=== PATIENT | female | born 1945 | race Caucasian/White ===

== ENCOUNTER 2016-08-30 16:42 | Emergency (ER) | payer MEDICARE, OTHER ==
--- NOTE | 2016-08-30 17:46 | RAD ---
EXAM: Chest,2 Views CLINICAL INDICATION: 71-year-old female with cough and fever. COMPARISON: 07/13/2012. FINDINGS: Two-view, PA and lateral projections of the chest were obtained. Unremarkable cardiac and mediastinal silhouette. Heart size is normal. Atherosclerotic thoracic aorta.Lungs are clear without focal opacity, pneumothorax or pleural effusions. The visualized bones are within normal limits. IMPRESSION: No acute cardiopulmonary abnormalities. Electronically signed by: Flori Christianson MD 08/30/2016 5:45 PM NATURAL SCIENCES PROFESSOR
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
[2016-08-30] MEDS ORDERED: cefTRIAXone SODIUM 1 GM VIAL IM ONE (18:29)
[2016-08-30] MEDS ORDERED: methylPREDNISolone ACETATE 80 MG/ML VIAL IM ONE (18:29)
[2016-08-30] MEDS ORDERED: BENZONATATE PERLES 100 MG CAP PO ONE (18:30)
[2016-08-30] MEDS ORDERED: LIDOCAINE 1% 10 ML VIAL INJ ONE (18:45)
[2016-08-30] MEDS ORDERED: ACETAMINOPHEN 500 MG TAB PO ONE (19:12)
[2016-08-30 19:23] VITALS: BP 151/81; TEMP 100.9; O2SAT 93
--- NOTE | 2016-09-27 23:48 | RAD ---
EXAM: Chest,2 Views CLINICAL INDICATION: 71-year-old female with cough and fever. COMPARISON: 07/13/2012. FINDINGS: Two-view, PA and lateral projections of the chest were obtained. Unremarkable cardiac and mediastinal silhouette. Heart size is normal. Atherosclerotic thoracic aorta.Lungs are clear without focal opacity, pneumothorax or pleural effusions. The visualized bones are within normal limits. IMPRESSION: No acute cardiopulmonary abnormalities. Electronically signed by: Flori Christianson MD 08/30/2016 5:45 PM FINAL INSPECTOR AND TESTER
== END 2016-08-30 19:22 | disposition home or self-care (01) ==
LOC: ER 16:42
DX: J40 Bronchitis, not specified as acute or chronic (principal); R09.02 Hypoxemia; R50.81 Fever presenting with conditions classified elsewhere; I10 Essential (primary) hypertension; E11.9 Type 2 diabetes mellitus without complications; Z79.899 Other long term (current) drug therapy; Z87.891 Personal history of nicotine dependence
CPT/HCPCS: 71020; 87502; J0696; J1030

== ENCOUNTER → 2017-07-05 | Outpatient (CLI) | payer MEDICARE, OTHER | END | disposition home or self-care (01) | LOC: GMAJ 10:55 | PROVIDERS: ATTEND Family Medicine | DX: I10 Essential (primary) hypertension (principal) ==

== ENCOUNTER → 2018-04-06 | Outpatient (CLI) | payer MEDICARE, OTHER ==
--- NOTE | 2018-04-11 15:51 | MAM ---
EXAM DESCRIPTION: 3D Screening BILATERAL : Digital Mammography. CLINICAL HISTORY: 72 years Female SCREENING . No complaints. No personal history or family history of breast cancer. Hysterectomy. Childbirth. No HRT. Lifetime risk of developing breast cancer (Tyrer-Cuzick model) is 3.9 %. COMPARISON: 2-D digital screening bilateral study 05/02/2014. No prior reports available. TECHNIQUE: Bilateral CC and MLO projection full-field images, Digital tomosynthesis mammographic technique. Bilateral digital 2-D full-field MLO images. CAD not utilized. FINDINGS: The breast parenchymal density pattern is: Scattered areas of fibroglandular density. No skin thickening or nipple retraction. Bilateral vascular calcifications. Large solitary calcification in the retroareolar right breast. Bilateral solitary microcalcifications. No new focal, stellate mass or density, focal asymmetry , and no suspicious microcalcifications bilaterally. Stable mammograms compared to prior study. Taking into account, differences in mammographic technique. IMPRESSION: Benign exam. BIRAD CATEGORY: 2 BENIGN FINDINGS. RECOMMENDATIONS: FOLLOW UP: Routine digital bilateral screening, one year interval from April 2018. Written communication explaining the IMPRESSION and follow-up, will be mailed to the patient and referring health care provider. According to the [employer], yearly mammograms are recommended starting at age 40 and continuing as long as a woman is in good health. Any breast change noted on a breast self-exam should be reported promptly to the patient's healthcare provider. Breast MRI is recommended for women with an approximately 20-25% or greater lifetime risk of breast cancer, including women with a strong family history of breast or ovarian cancer and women who have been treated for Hodgkin's disease. A negative mammographic report should not delay tissue diagnosis in patients with significant clinical history or physical findings. Extremely dense breast tissue limits the sensitivity of digital mammography. Electronically signed by: Dhruv Womack MD 04/11/2018 3:50 PM CDT
== END ==
LOC: MAMMO 14:52
PROVIDERS: ATTEND Family Medicine
DX: Z12.31 Encounter for screening mammogram for malignant neoplasm of breast (principal)

== ENCOUNTER 2018-06-26 18:25 | Emergency (ER) | payer MEDICARE, OTHER ==
[2018-06-26 19:21] VITALS: TEMP 98.5
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
[2018-06-26 21:17] VITALS: BP 170/78; O2SAT 100
== END 2018-06-26 21:10 | disposition home or self-care (01) ==
LOC: ER 18:25
DX: E11.65 Type 2 diabetes mellitus with hyperglycemia (principal); I10 Essential (primary) hypertension; Z79.84 Long term (current) use of oral hypoglycemic drugs; Z79.899 Other long term (current) drug therapy; Z87.891 Personal history of nicotine dependence

== ENCOUNTER → 2018-06-30 | Outpatient (CLI) | payer MEDICARE, OTHER ==
--- NOTE | 2018-06-30 13:31 | RAD ---
EXAM DESCRIPTION: Pelvis CLINICAL HISTORY: PAIN IN RIGHT HIP COMPARISON: None. TECHNIQUE: AP pelvis FINDINGS: Loss of joint space is observed in the right hip. Mild acetabular osteophyte formation is observed in the right. Phlebolith type calcifications are seen in the pelvis. No fracturing is detected. Calcific atherosclerotic changes observed in the femoral vessels. Degenerative changes are observed in the lower lumbar spine. IMPRESSION: Degenerative changes are observed in the right hip. No fracturing is detected. Electronically signed by: Bryson Landeros MD 06/30/2018 1:29 PM [facility]
--- NOTE | 2018-06-30 13:31 | RAD ---
EXAM DESCRIPTION: Hip,Right 2 Views CLINICAL HISTORY: PAIN IN RIGHT HIP COMPARISON: None. TECHNIQUE: 2 views right FINDINGS: Loss of joint space is observed. Some sclerosis of the acetabulum is noted. Mild acetabular osteophyte formation is observed. No fracturing is detected. No pelvic fracturing is seen. IMPRESSION: Degenerative changes are observed in the right hip. Electronically signed by: Bryson Landeros MD 06/30/2018 1:30 PM [facility]
== END ==
LOC: RAD 08:24
PROVIDERS: ATTEND Orthopaedic Surgery
DX: M25.551 Pain in right hip (principal); M12.851 Other specific arthropathies, not elsewhere classified, right hip

== ENCOUNTER 2018-07-06 06:14 | Day surgery (SDC) | payer MEDICARE, OTHER ==
[~2018-07-06 06:14] MED LIST: LACTATED RINGERS 1,000 ML ONE
[2018-07-06] MEDS ORDERED: LIDOCAINE 1% W/ EPINEPHRINE 20 ML VIAL INJ ONE (08:23)
[2018-07-06] MEDS ORDERED: BUPIVACAINE 0.25% INJ 30 ML VIAL INJ ONE (08:23)
[2018-07-06] MEDS ORDERED: methylPREDNISolone ACETATE 80 MG/ML VIAL ONE (08:23)
[2018-07-06] MEDS ORDERED: PROPOFOL 200 MG/20 ML VIAL IV ONE (10:00)
[2018-07-06] MEDS ORDERED: LIDOCAINE 1% 10 ML VIAL INJ ONE (10:00)
[2018-07-06 10:43] VITALS: O2SAT 99
[2018-07-06 11:18] VITALS: BP 143/76; TEMP 97.3
--- NOTE | 2018-07-07 09:25 | OP ---
DATE OF PROCEDURE: 07/06/18 PREOPERATIVE DIAGNOSIS: 1. Osteoarthritis of the hip. POSTOPERATIVE DIAGNOSIS: 1. Osteoarthritis of the hip. PROCEDURE: 1. Injection under anesthesia. SURGEON: Gibson Valadez MD. CLINICAL DOCUMENTATION MANAGER: Dhruv Barrett CST, SA-C. ANESTHESIA: Conscious sedation. COMPLICATIONS: None. FINDINGS: Severe arthritis of the hip. INDICATION: Ms. Ramirez has a history of severe hip pain that has been getting progressively worse. Because of the progressive nature of her pain, she has requested intervention. After discussing the risks, benefits and alternatives to operative intervention, the patient has given informed consent. PROCEDURE: The patient was brought to the Operating Room and placed in supine position. Conscious sedation was administered and the leg was flexed, abducted and externally rotated. The groin was prepped and fluoroscopic imaging was used to confirm needle placement into the hip joint through a medial portal. Once placement had been confirmed, a combination of lidocaine and Depo-Medrol were injected into the joint. After injection, the needle was withdrawn. Pressure was held on the injection site. A sterile band-aid was placed. The patient was then taken back to the Day Surgery Unit. POSTOPERATIVE PLAN: The patient will be weight-bearing as tolerated on postoperative day 1. #[id number] MTDD
== END 2018-07-06 11:15 | disposition home or self-care (01) ==
LOC: AMB 06:14
PROVIDERS: ATTEND Orthopaedic Surgery
DX: M16.11 Unilateral primary osteoarthritis, right hip (principal); I10 Essential (primary) hypertension; E11.9 Type 2 diabetes mellitus without complications; Z90.710 Acquired absence of both cervix and uterus; Z79.84 Long term (current) use of oral hypoglycemic drugs; Z79.899 Other long term (current) drug therapy
CPT/HCPCS: 01200; 20610; 36416; 76000; 82948; 87070; J1030; J3490; J7120

== ENCOUNTER → 2018-10-31 | Outpatient (CLI) | payer MEDICARE, OTHER ==
--- NOTE | 2018-10-31 13:40 | US ---
EXAM DESCRIPTION: Carotid Duplex: ULTRASOUND. 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 TECHNIQUE: Transcutaneous scanning utilizing tatum-scale and Doppler modes to evaluate the bilateral carotid systems and vertebral arteries. Percentage of diameter of stenosis or no stenosis recorded will be based upon NASCET criteria. FINDINGS: Peak systolic/end diastolic (CM-Sec) CCA Right 56/13 Left 76/18. ICA Right proximal 49/11, distal 72/12. Left proximal 58/13, Distal 75/18. Vertebral Right 65/17 Left 48/13. ECA (PS Only) Right 73 left 79. ICA/CCA peak systolic ratio: Right 1.3 Left 1.0 ICA/CCA end diastolic ratio: Right 1.0 Left 1.0 Vertebral arteries: antegrade flow. Comments: Atherosclerotic calcification bilateral common carotid distally and at the bifurcation. Spectral broadening bilateral proximal ICAs more left than right. IMPRESSION: 1. Doppler evaluation of the bilateral carotid systems and vertebral arteries shows no hemodynamically significant stenoses. 2. No significant amount of plaque seen in the carotid arteries bilaterally. Bilateral vertebral arteries showed antegrade-cephalad flow. Electronically signed by: Dhruv Womack MD 10/31/2018 1:37 PM CDT
== END ==
LOC: US 12:00
PROVIDERS: ATTEND Ophthalmology
DX: H47.019 Ischemic optic neuropathy, unspecified eye (principal)

== ENCOUNTER → 2019-07-01 | Outpatient (CLI) | payer MEDICARE, OTHER ==
--- NOTE | 2019-07-01 15:52 | RAD ---
EXAM DESCRIPTION: XR Chest, 2 Views CLINICAL HISTORY: 74 years Female, COUGH COMPARISON: August 30, 2016. FINDINGS: Heart size is normal. There is calcification in the aortic arch and minimal uncoiling of the thoracic aorta. The lungs appear essentially clear except for a probable nipple shadow on the left. No evidence of pneumothorax or pleural effusion. Scattered slight chronic changes are noted in the dorsal spine. Overall, no significant interval change is seen. IMPRESSION: No radiographic evidence of acute cardiopulmonary disease. Follow-up suggested as needed clinically. Electronically signed by: René Bullard MD 07/01/2019 3:50 PM [facility]
== END ==
LOC: RAD 14:29
PROVIDERS: ATTEND Physician Assistant
DX: R05 Cough (principal)

== ENCOUNTER → 2019-10-25 | Outpatient (CLI) | payer MEDICARE, OTHER | LOC: GMAE 10:11 | PROVIDERS: ATTEND Family Medicine | DX: I10 Essential (primary) hypertension (principal); E11.9 Type 2 diabetes mellitus without complications; E78.2 Mixed hyperlipidemia ==